=== PATIENT | male | born 2000 | race Caucasian/White ===

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

== ENCOUNTER → 2024-01-15 10:52 | Outpatient (BNVA) | payer OTHER, SELFPAY | PROVIDERS: PCP Family Medicine; Visit Provider Emergency Medicine | DX: M25.571 Pain in right ankle and joints of right foot (principal) | CPT/HCPCS: 73610 ==

== ENCOUNTER 2024-06-27 21:53 | Day surgery (SDC) | payer OTHER, SELFPAY ==
[2024-06-27 22:07] VITALS: BP 143/93; PULSE 84; RESP 18; TEMP 36.6; O2SAT 99; BMI 28.7
--- NOTE | 2024-06-27 23:12 | W.ED.ABDPA2 ---
HPI - Abdominal Pain General: Chief Complaint: Abdominal Pain Stated Complaint: sharp abd pain low right Time Seen by Provider: 06/27/24 22:21 History of Present Illness: 24-year-old man who is otherwise healthy who presents emergency room with right lower quadrant pain. Says he is worried he has appendicitis. Says pain started centrally and now is moved over the right side. He is had nausea but no vomiting. No known fevers. This started earlier today. Related Data Allergies Allergy/AdvReac Type Severity Reaction Status Date / Time No Known Allergies Allergy Verified 01/15/24 10:48 Review of Systems Narrative: Constitutional symptoms: Negative except as documented in HPI. Skin symptoms: Negative except as documented in HPI. Eye symptoms: Negative except as documented in HPI. ENMT symptoms: Negative except as documented in HPI. Respiratory symptoms: Negative except as documented in HPI. Cardiovascular symptoms: Negative except as documented in HPI. Gastrointestinal symptoms: Negative except as documented in HPI. Genitourinary symptoms: Negative except as documented in HPI. Musculoskeletal symptoms: Negative except as documented in HPI. Neurologic symptoms: Negative except as documented in HPI. Psychiatric symptoms: Negative except as documented in HPI. Endocrine symptoms: Negative except as documented in HPI. Physical Exam Narrative: EXAM NARRATIVE: General: Alert, no acute distress. Skin: Warm, dry. Head: Normocephalic, atraumatic. Neck: Supple, trachea midline. Eye: Extraocular movements are intact. Ears, nose, mouth and throat: mucosa moist. Cardiovascular: Regular, Normal peripheral perfusion. Respiratory: Lungs are clear to auscultation, respirations are non-labored, breath sounds are equal, Symmetrical chest wall expansion. Gastrointestinal: Soft, right lower quadrant tenderness palpation, Non distended Musculoskeletal: Normal ROM, no deformity. Neurological: Alert and oriented, No focal neurological deficit observed. Psychiatric: Cooperative, appropriate mood & affect. Course Vital Signs: Vital signs: Vital Signs Temperature 97.9 F 06/27/24 22:07 Pulse Rate 84 06/27/24 22:07 Respiratory Rate 18 06/27/24 22:07 Blood Pressure 143/93 06/27/24 22:07 Pulse Oximetry 99 06/27/24 22:07 Oxygen Delivery Me thod Room Air 06/27/24 22:07 MDM - Abdominal Pain Medical Decision Making Medical decision making: Differential diagnosis for this patient with right lower quadrant abdominal pain including but not limited to and based on the above HPI, review of systems and physical exam: Ureterolithiasis. Urinary tract infection. Appendicitis. colitis. small bowel obstruction. Crohn's flare. Pancreatitis. Cholelithiasis or cholecystitis. Hepatitis. Diverticulitis. Constipation. ovarian cyst. ovarian torsion Workup: Orders were placed to evaluate differential diagnosis based on the above differential, HPI and exam: Lab Review: Laboratory results were reviewed and interpreted by myself the emergency room physician. Significant leukocytosis with a white count of 18,000. No anemia. No renal failure. Urinalysis is clear. CT of the abdomen pelvis with contrast: Acute noncomplicated appendicitis. This was reviewed and interpreted by myself the emergency room physician. I also reviewed the radiology report. I reviewed the patient's medical record Consultation: I spoke with Dr. Qiu who is on-call for general surgery who accepts the patient for admission. Requests IV pain meds, nausea meds, antibiotics and fluids. N.p.o. after midnight. Reexamination: Patient is complaining of some more pain. Him giving him some morphine and Zofran here in the emergency room. Otherwise no distress. He was sleeping fairly comfortably. Still with some right lower quadrant pain. Assessment and plan: Acute appendicitis ?IV Zosyn, Zofran and morphine. -I discussed the patient with the hospitalist on-call who is admitting the patient. - Discussed findings and plan with patient. Answered any questions. - All laboratory values were reviewed and interpreted personally by myself, the ER physician - All imaging was reviewed and interpreted personally by myself, the ER physician. - Evaluation and treatment of this problem were appropriate in the emergency setting Lab Data 06/27/24 23:05 06/27/24 23:05 Labs/Radiology: Radiology Impressions Abdomen/Pelvis CT 06/28/24 00:00 IMPRESSION: Uncomplicated acute appendicitis. Small amount of free fluid in the pelvis. ADDENDUM: 06/28/24 0133 THIS REPORT CONTAINS FINDINGS THAT MAY BE CRITICAL TO PATIENT CARE. The findings were verbally communicated via telephone conference with JJ ALFARO at 1:03 AM TRAVEL ASSISTANT on 06/28/2024. The findings were acknowledged and understood. Laboratory Results WBC 18.23 10^3/uL (3.29-11.43) H 06/27/24 23:05 RBC 5.13 10^6/uL (3.85-5.65) 06/27/24 23:05 Hgb 15.00 g/dL (11.27-16.99) 06/27/24 23:05 Hct 43.6 % (37-53) 06/27/24 23:05 MCV 85.0 fl (82-101) 06/27/24 23:05 MCH 29.2 pg (27-33) 06/27/24 23:05 MCHC 34.4 g/dL (30-55) 06/27/24 23:05 RDW 12.2 % (12.1-15.1) 06/27/24 23:05 Plt Count 262 10^3/cmm (157-399) 06/27/24 23:05 MPV 8.5 fL (7.4-10.4) 06/27/24 23:05 Neut % (Auto) 85.6 % 06/27/24 23:05 Lymph % (Auto) 8.2 % 06/27/24 23:05 [place] % (Auto) 5.3 % 06/27/24 23:05 Eos % (Auto) 0.4 % 06/27/24 23:05 Baso % (Auto) 0.2 % 06/27/24 23:05 Neut # (Auto) 15.61 10^3/uL (1.8-7.7) H 06/27/24 23:05 Lymph # (Auto) 1.5 10^3/uL (0.8-4.8) 06/27/24 23:05 [place] # (Auto) 1.0 10^3/uL (0.2-0.9) H 06/27/24 23:05 Eos # (Auto) 0.1 10^3/uL (0.0-0.8) 06/27/24 23:05 Baso # (Auto) 0.0 10^3/uL (0.0-0.1) 06/27/24 23:05 Nucleated RBC % (auto) 0 % 06/27/24 23:05 Nucleated RBCs # 0.0 /100WBC 06/27/24 23:05 Sodium 140 mmol/L (136-145) 06/27/24 23:05 Potassium 3.7 mmol/L (3.5-5.1) 06/27/24 23:05 Chloride 101 mmol/L (98-107) 06/27/24 23:05 Carbon Dioxide 26 mmol/L (22-29) 06/27/24 23:05 Anion Gap 16.7 (5-19) 06/27/24 23:05 BUN 13 mg/dL (6-20) 06/27/24 23:05 Creatinine 1.0 mg/dL (0.7-1.2) 06/27/24 23:05 GFR Calculation 92.6 mL/min (90-130) 06/27/24 23:05 Glucose 97 mg/dL (65-115) 06/27/24 23:05 Calculated Osmolality 290 mOsm/kg (285-295) 06/27/24 23:05 Calcium 9.4 mg/dL (8.5-10.5) 06/27/24 23:05 Total Bilirubin 0.7 mg/dL (0.15-1.2) 06/27/24 23:05 AST 14 U/L (0-40) 06/27/24 23:05 ALT 16 U/L (0-41) 06/27/24 23:05 Alkaline Phosphatase 79 U/L (40-130) 06/27/24 23:05 C-Reactive Protein 3.7 mg/L (0.0-4.9) 06/27/24 23:05 Total Protein 7.4 g/dL (6.6-8.7) 06/27/24 23:05 Albumin 4.9 g/dL (3.5-5.2) 06/27/24 23:05 Globulin 2.5 g/dL (1.3-4.6) 06/27/24 23:05 Lipase 34 U/L (13-60) 06/27/24 23:05 Urine Color Yellow (Yellow) 06/28/24 00:03 Urine Appearance Clear (CLEAR) 06/28/24 00:03 Urine pH 6.0 (5-7) 06/28/24 00:03 Ur Specific [place] 1.019 (1.005-1.030) 06/28/24 00:03 Urine Protein Negative (Negative) 06/28/24 00:03 Urine Glucose (UA) Negative (Normal) 06/28/24 00:03 Urine Ketones Negative (Negative) 06/28/24 00:03 Urine Blood Negative (Negative) 06/28/24 00:03 Urine Nitrate Negative (Negative) 06/28/24 00:03 Urine Bilirubin Negative (Negative) 06/28/24 00:03 Urine Urobilinogen 0.2 mg/dL (Negative) 06/28/24 00:03 Ur Leukocyte Esterase Negative (Negative) 06/28/24 00:03 Urine RBC 0-2 /hpf (0-2) 06/28/24 00:03 Urine WBC 0-5 /hpf (0-5) 06/28/24 00:03 Ur Squamous Epith Cells 0-5 /hpf (0-5) 06/28/24 00:03 Amorphous Sediment Not Reportable 06/28/24 00:03 Urine Bacteria None seen /hpf (NONE) 06/28/24 00:03 Hyaline Casts 0-4 /lpf H 06/28/24 00:03 All radiology interpretation(s) finalized by discharge Discharge Plan Discharge Patient Disposition: Admitted As Inpatient Admit Provider: Adolfo Qiu Clinical Impression: Acute appendicitis Condition: Stable Coding Level of Care Code ED Blade Sharpener for Yanci Irizarry
[2024-06-27 23:14] LABS: Basophils % 0.2 %; Eosinophils # 0.1 10^3/uL (0.0-0.8); Eosinophils % 0.4 %; Hematocrit 43.6 % (37-53); Lymphocytes # 1.5 10^3/uL (0.8-4.8); Lymphocytes % 8.2 %; Mean Corpuscular HGB Conc 34.4 g/dL (30-55); Mean Corpuscular Hemoglobin 29.2 pg (27-33); Mean Platelet Volume 8.5 fL (7.4-10.4); Monocytes % 5.3 %; Neutrophils # 15.61 10^3/uL (1.8-7.7); Neutrophils % 85.6 %; Nucleated Red Blood Cells % 0 %; Platelet Count 262 10^3/cmm (157-399); Red Blood Count 5.13 10^6/uL (3.85-5.65); Red Cell Distribution Width 12.2 % (12.1-15.1); White Blood Count 18.23 10^3/uL (3.29-11.43)
[2024-06-27 23:15] VITALS: PULSE 87; O2SAT 98
[2024-06-27 23:33] LABS: Alanine Aminotransferase 16 U/L (0-41); Albumin Level 4.9 g/dL (3.5-5.2); Alkaline Phosphatase 79 U/L (40-130); Anion Gap 16.7 (5-19); Aspartate Amino Transferase 14 U/L (0-40); Blood Urea Nitrogen 13 mg/dL (6-20); C Reactive Protein 3.7 mg/L (0.0-4.9); Calcium 9.4 mg/dL (8.5-10.5); Carbon Dioxide 26 mmol/L (22-29); Chloride 101 mmol/L (98-107); Creatinine Clr Calc Pharmacy 130.1417; Globulin 2.5 g/dL (1.3-4.6); Glomerular Filtration Rate 92.6 mL/min (90-130); Glucose 97 mg/dL (65-115); Lipase 34 U/L (13-60); Osmolality Calculated 290 mOsm/kg (285-295); Potassium 3.7 mmol/L (3.5-5.1); Sodium 140 mmol/L (136-145); Total Bilirubin 0.7 mg/dL (0.15-1.2); Total Protein 7.4 g/dL (6.6-8.7)
[2024-06-28] VITALS (32 sets, daily range): BP systolic 105–154; BP diastolic 40–89; PULSE 56–104; RESP 14–18; TEMP 36.2–36.7; O2SAT 95–100
--- NOTE | 2024-06-28 | CTR_ITS ---
PROCEDURE INFORMATION: Exam: CT Abdomen And Pelvis With Contrast Exam date and time: 06/28/2024 12:28 AM Age: 24 years old Clinical indication: Abdominal pain; Flank; Left lower quadrant (llq); Additional info: Rlq abdominal pain TECHNIQUE: Imaging protocol: Computed tomography of the abdomen and pelvis with contrast. Radiation optimization: All CT scans at this facility use at least one of these dose optimization techniques: automated exposure control; mA and/or kV adjustment per patient size (includes targeted exams where dose is matched to clinical indication); or iterative reconstruction. Contrast material: [id number]; Contrast volume: 100 ml; Contrast route: INTRAVENOUS (IV); COMPARISON: No relevant prior studies available. RADIATION DOSE METRICS: Total DLP (mGy-cm): 693.39 FINDINGS: Liver: Normal. No mass. Gallbladder and biliary ducts: Normal. No calcified stones. No ductal dilation. Pancreas: Normal. No ductal dilation. Spleen: Normal. No splenomegaly. Adrenal glands: Normal. No mass. Kidneys and ureters: Normal. No hydronephrosis. Stomach and bowel: No bowel obstruction. Appendix: Inflamed appendix with periappendiceal inflammatory changes. No periappendiceal fluid collection. Intraperitoneal space: There is a trace amount of free fluid in the pelvis. No free air. Vasculature: Unremarkable. No abdominal aortic aneurysm. Lymph nodes: Unremarkable. No enlarged lymph nodes. Urinary bladder: Unremarkable as visualized. Reproductive: Unremarkable as visualized. Bones/joints: Unremarkable. No acute fracture. Soft tissues: Small fat containing umbilical hernia. CT/CT abdomen pelvis w con* [id number] IMPRESSION: Uncomplicated acute appendicitis. Small amount of free fluid in the pelvis.
[2024-06-28] MEDS: iohexol 350 mg/mL 500 mL Btl (per mL) IV (00:31)
[2024-06-28 00:43] LABS: Bacteria Urine None Seen /hpf; Hyaline Casts Urine 0-4 /lpf; RBC Urine 0-2 /hpf (0-2); Squamous Epithelial Cell Urine 0-5 /hpf (0-5); WBC Urine 0-5 /hpf (0-5)
[2024-06-28 00:44] LABS: Add Urine Microscopic? YES; Bilirubin Urine Negative (Negative); Blood Urine Negative (Negative); Glucose Urine UA Negative (Normal); Ketones Urine Negative (Negative); Leukocyte Esterase Urine Negative (Negative); Nitrate Urine Negative (Negative); Protein Urine Negative (Negative); Specific Gravity, Urine 1.019 (1.005-1.030); Urine Appearance Clear (CLEAR); Urine Color Yellow (Yellow); Urobilinogen Urine 0.2 mg/dL (Negative)
[2024-06-28] MEDS: piperacillin-tazobactam 4.5 GM in sodium chloride 0.9% (plus) 50 ML IV (01:44)
[2024-06-28] MEDS: ondansetron 2 mg/ML SDV 2 mL 4 MG IVP (02:21)
[2024-06-28] MEDS: morphine 4 mg/mL SDV 1 mL IVP (02:22)
--- NOTE | 2024-06-28 08:46 | P.HP_ITS ---
Providers/Chief Complaint 2 Admitting Physician: Adolfo Qiu DO Chief Complaint: sharp abd pain low right History of Present Illness Flex Gates is a 24 year old male presents to the hospital with a 1 day history of right lower quadrant abdominal pain. Palpation makes the pain worse. Not makes pain better. The pain does not radiate. Patient denies any nausea, emesis, diarrhea, constipation, hematochezia and/or melena. He does report feeling feverish with chills in the past [address] the abdomen pelvis shows acute appendicitis Review of Systems 2 General: Reports: 10 or more systems reviewed and unremarkable except in HPI and below Medications/Allergies Home Medications Medication Instructions Recorded Confirmed Last Taken Type No Known Home Medications 06/28/24 06/28/24 Unknown History Allergies Allergy/AdvReac Type Severity Reaction Status Date / Time No Known Allergies Allergy Verified 01/15/24 10:48 Vitals/I&O/Wt Last Vital Signs Temp 97.9 F 06/27/24 22:07 Pulse 56 L 06/28/24 08:41 Resp 18 06/28/24 02:22 BP 136/46 06/28/24 08:41 Pulse Ox 97 06/28/24 08:41 O2 Del Method Room Air 06/28/24 07:30 Weight last 48 hrs Weight 200 lb Physical Exam 2 Narrative: General : Patient is well developed , no acute distress, oriented x3 Head : Normal cephalic, a-traumatic. Ears : Pinnae and external canal are normal. Hearing is normal. Eyes : PERRLA, Sclera and injection are normal. No conjunctival discharge. Nose : Mucous membranes are without erythema. Throat : buccal mucosa is normal, gums are without significant recession or hypertrophy. Lungs : Equal chest rise bilaterally, no use of accessory muscles, trachea is midline. Cor : Rate and rhythm are normal. Abdomen : Soft, ND, tender partition right lower quadrant, negative Rovsing's, no g/r/m Extremities : No edema, no cyanosis or clubbing, dorsalis pedis pulses are present bilaterally, non-tender to palpation of calves. Upper extremities are normal bilaterally. Back : non-tender to palpation, no CVA tenderness. Neuro : CN II - XII intact, Upper and lower extremities have equal and full strength Data 06/27/24 23:05 06/27/24 23:05 Micro: Microbiology 06/28/24 01:34 Blood Culture - Preliminary Blood SPECIMEN COLLECTED 06/28/24 01:44 Blood Culture - Preliminary Blood SPECIMEN COLLECTED A&P Assessment and plan (1) Acute appendicitis: Plan Laparoscopic Appendectomy The risks and benefits of the procedure, including but not limited to, bleeding, infection, scar, numbness, pain, damage to surrounding structures, conversion to an open procedure, were explained to the patient. He is understanding of the risks and wishes to proceed. Attestations 2 Medical Necessity Statement*: Patient may need to stay for 1 to 5 days overnight after appendectomy for IV antibiotics depending on if the appendix is perforated Coding Level of Care Code 53499 Diagnoses Acute appendicitis K35.80
--- NOTE | 2024-06-28 08:51 | ANES.PREANE2 ---
Pre-Anesthetic Assessment Height/Weight: Height 5 ft 10 in Weight 200 lb Temp Pulse Resp BP Pulse Ox O2 Del Method 98.1 F 66 18 138/67 99 Room Air 06/28/24 08:44 06/28/24 08:44 06/28/24 08:44 06/28/24 08:44 06/28/24 08:44 06/28/24 08:44 Preop Diagnosis: Acute appendicitis Operation Date: 06/28/24 17:10 Proposed Procedures p Laparoscopic Appendectomy(Not Applicable) - Adolfo Qiu, DO Was Beta Milana taken within 24 hours: N/A Was Clonidine taken within 24 hours: N/A Last intake: Intake Last Liquid Date 06/27/24 Last Liquid Time 17:00 Last Solid Date 06/27/24 Last Solid Time 11:00 Social Tobacco and No alcohol Exam alert, oriented x 3, clear to auscultation bilaterally and regular rate & rhythm Airway Submandibular: within normal limits Cervical ROM: within normal limits Mallampati: Class I Dentition: full Anesthetic Plan ASA status: 2 Anesthesia: General Other: Never had anesthesia before, currently has acute appendicitis NPO since yesterday Labs reviewed, WBC 18.2 Currently vapes nicotine Denies any cardiac issues METs greater than 4 Plan for GETA Medications/Allergies Home Medications Medication Instructions Recorded Confirmed Last Taken Type No Known Home Medications 06/28/24 06/28/24 Unknown History Allergies Allergy/AdvReac Type Severity Reaction Status Date / Time No Known Allergies Allergy Verified 01/15/24 10:48 Data Anesthesia 06/27/24 23:05 06/27/24 23:05 Short CBC 06/27/24 Range/Units 23:05 WBC 18.23 H (3.29-11.43) 10^3/uL Hgb 15.00 (11.27-16.99) g/dL Hct 43.6 (37-53) % MCV 85.0 (82-101) fl Plt Count 262 (157-399) 10^3/cmm Neut % (Auto) 85.6 % Neut # (Auto) 15.61 H (1.8-7.7) 10^3/uL BMP 06/27/24 23:05 Sodium 140 Potassium 3.7 Chloride 101 Carbon Dioxide 26 BUN 13 Creatinine 1.0 Glucose 97 Calcium 9.4 Liver Function 06/27/24 Range/Units 23:05 Total Bilirubin 0.7 (0.15-1.2) mg/dL AST 14 (0-40) U/L ALT 16 (0-41) U/L Alkaline Phosphatase 79 (40-130) U/L Albumin 4.9 (3.5-5.2) g/dL Urine 06/28/24 Range/Units 00:03 Urine Color Yellow (Yellow) Urine Appearance Clear (CLEAR) Urine pH 6.0 (5-7) Ur Specific [place] 1.019 (1.005-1.030) Urine Protein Negative (Negative) Urine Glucose (UA) Negative (Normal) Urine Ketones Negative (Negative) Urine Nitrate Negative (Negative) Urine Bilirubin Negative (Negative) Ur Leukocyte Esterase Negative (Negative) Urine RBC 0-2 (0-2) /hpf Urine WBC 0-5 (0-5) /hpf Coags 06/27/24 23:05 C-Reactive Protein 3.7 Microbiology 06/28/24 01:34 Blood Culture - Preliminary Blood SPECIMEN COLLECTED 06/28/24 01:44 Blood Culture - Preliminary Blood SPECIMEN COLLECTED Cardiac Studies: No Data to Display
[2024-06-28] MEDS: sodium chloride 0.9% 1,000 ML 30 ML IV (09:01)
[2024-06-28] MEDS: piperacillin-tazobactam 3.375 GM in sodium chloride 0.9% (plus) 50 ML IV (09:24)
[2024-06-28] MEDS: lidocaine-epi 2% PF 1:200,000 20 mL SDV 10 ML INJECTION (10:01)
--- NOTE | 2024-06-28 10:15 | P.OP_ITS ---
Operative Report Date of procedure: June 28, 2024 Pre-op diagnosis: Acute appendicitis Post-op diagnosis: same Procedure done: Laparoscopic appendectomy Implants: none Specimens removed/disposition: appendix Surgeon: Adolfo Qiu DO Anesthesia: General and Local Estimated blood loss (mL): 5 Complications: None apparent Brief History: This is a very pleasant 24-year-old gentleman who presented to the hospital with abdominal pain. He was diagnosed with acute appendicitis. Laparoscopic appendectomy is indicated. The risks and benefits of the procedure were explained and documented. Procedure: Patient was wheeled into the operative room and placed on the OR table in a supine position. Abdomen was inspected prepped and draped in usual sterile fashion. Time-out was performed and all present were in agreement. A 15 blade scalp was used to make a stab incision in the left upper quadrant and intra- abdominal insufflation was achieved using a Veress needle. After localizing the tissue incisions were made and a 12 millimeter trocar was placed into the umbilicus as well as a 5mm in the right lower quadrant and a 5 mm in the left lower quadrant . The appendix was identified and was mildly inflamed. I used the laparoscopic ligature to ligate the mesoappendix at the base. I then used 2 PDS endo-loops to snare the base of the appendix. I then used the laparoscopic ligature to ligate the appendix distally. The appendix was removed from the abdomen using an Endo-Catch bag through the umbilical incision. I examined the abdomen and no further pathology was identified. Hemostasis was noted. I then closed the umbilical site with a Henry-Ezeqiuel and 0 Vicryl suture in a figure of 8 fashion. All ports removed. Skin was washed and dried. Incisions were closed with 4 O Vicryl in a subcuticular interrupted fashion. Skin glue was a pplied. Patient tolerated the procedure well.
--- NOTE | 2024-06-28 10:16 | P.DS_ITS ---
Discharge Providers Date of Admission: 06/28/24 01:11 Date of Discharge: June 28, 2024 Attending Provider at Admission: Adolfo Qiu DO Attending Provider at Discharge: Adolfo Qiu DO Diagnoses at Discharge Discharge Diagnosis (1) Acute appendicitis: Status: Acute Reason for Visit Reason for Visit: sharp abd pain low right Hospital Course Hospital Course This very pleasant 24-year-old gentleman presented to the hospital with acute appendicitis. He underwent laparoscopic appendectomy and was discharged home in good condition from the postanesthesia care unit. Physical Exam Narrative: General : Patient is well developed , no acute distress, oriented x3 Head : Normal cephalic, a-traumatic. Ears : Pinnae and external canal are normal. Hearing is normal. Eyes : PERRLA, Sclera and injection are normal. No conjunctival discharge. Nose : Mucous membranes are without erythema. Throat : buccal mucosa is normal, gums are without significant recession or hypertrophy. Lungs : Equal chest rise bilaterally, no use of accessory muscles, trachea is midline. Cor : Rate and rhythm are normal. Abdomen : Soft, ND, appropriately tender, no g/r/m Extremities : No edema, no cyanosis or clubbing, dorsalis pedis pulses are present bilaterally, non-tender to palpation of calves. Upper extremities are normal bilaterally. Back : non-tender to palpation, no CVA tenderness. Neuro : CN II - XII intact, Upper and lower extremities have equal and full strength Discharge Data Studies Completed and Pending Completed Studies During Hospitalization Category Date Time Status CT abdomen pelvis w con* [id number] Stat Cat Scan 06/28/24 00:00 Completed Pending at discharge Category Date Time Status Blood Culture Stat Lab 06/28/24 01:34 Results Pathology: Surgical [PTH] Routine Pth 06/28/24 10:11 Ordered Radiology Impressions Abdomen/Pelvis CT 06/28/24 00:00 IMPRESSION: Uncomplicated acute appendicitis. Small amount of free fluid in the pelvis. ADDENDUM: 06/28/24 0133 THIS REPORT CONTAINS FINDINGS THAT MAY BE CRITICAL TO PATIENT CARE. The findings were verbally communicated via telephone conference with JJ ALFARO at 1:03 AM WEB SERVICES ARCHITECT on 06/28/2024. The findings were acknowledged and understood. Laboratory Results WBC 18.23 10^3/uL (3.29-11.43) H 06/27/24 23:05 RBC 5.13 10^6/uL (3.85-5.65) 06/27/24 23:05 Hgb 15.00 g/dL (11.27-16.99) 06/27/24 23:05 Hct 43.6 % (37-53) 06/27/24 23:05 MCV 85.0 fl (82-101) 06/27/24 23:05 MCH 29.2 pg (27-33) 06/27/24 23:05 MCHC 34.4 g/dL (30-55) 06/27/24 23:05 RDW 12.2 % (12.1-15.1) 06/27/24 23:05 Plt Count 262 10^3/cmm (157-399) 06/27/24 23:05 MPV 8.5 fL (7.4-10.4) 06/27/24 23:05 Neut % (Auto) 85.6 % 06/27/24 23:05 Lymph % (Auto) 8.2 % 06/27/24 23:05 [place] % (Auto) 5.3 % 06/27/24 23:05 Eos % (Auto) 0.4 % 06/27/24 23:05 Baso % (Auto) 0.2 % 06/27/24 23:05 Neut # (Auto) 15.61 10^3/uL (1.8-7.7) H 06/27/24 23:05 Lymph # (Auto) 1.5 10^3/uL (0.8-4.8) 06/27/24 23:05 [place] # (Auto) 1.0 10^3/uL (0.2-0.9) H 06/27/24 23:05 Eos # (Auto) 0.1 10^3/uL (0.0-0.8) 06/27/24 23:05 Baso # (Auto) 0.0 10^3/uL (0.0-0.1) 06/27/24 23:05 Nucleated RBC % (auto) 0 % 06/27/24 23:05 Nucleated RBCs # 0.0 /100WBC 06/27/24 23:05 Sodium 140 mmol/L (136-145) 06/27/24 23:05 Potassium 3.7 mmol/L (3.5-5.1) 06/27/24 23:05 Chloride 101 mmol/L (98-107) 06/27/24 23:05 Carbon Dioxide 26 mmol/L (22-29) 06/27/24 23:05 Anion Gap 16.7 (5-19) 06/27/24 23:05 BUN 13 mg/dL (6-20) 06/27/24 23:05 Creatinine 1.0 mg/dL (0.7-1.2) 06/27/24 23:05 GFR Calculation 92.6 mL/min (90-130) 06/27/24 23:05 Glucose 97 mg/dL (65-115) 06/27/24 23:05 Calculated Osmolality 290 mOsm/kg (285-295) 06/27/24 23:05 Calcium 9.4 mg/dL (8.5-10.5) 06/27/24 23:05 Total Bilirubin 0.7 mg/dL (0.15-1.2) 06/27/24 23:05 AST 14 U/L (0-40) 06/27/24 23:05 ALT 16 U/L (0-41) 06/27/24 23:05 Alkaline Phosphatase 79 U/L (40-130) 06/27/24 23:05 C-Reactive Protein 3.7 mg/L (0.0-4.9) 06/27/24 23:05 Total Protein 7.4 g/dL (6.6-8.7) 06/27/24 23:05 Albumin 4.9 g/dL (3.5-5.2) 06/27/24 23:05 Globulin 2.5 g/dL (1.3-4.6) 06/27/24 23:05 Lipase 34 U/L (13-60) 06/27/24 23:05 Urine Color Yellow (Yellow) 06/28/24 00:03 Urine Appearance Clear (CLEAR) 06/28/24 00:03 Urine pH 6.0 (5-7) 06/28/24 00:03 Ur Specific [place] 1.019 (1.005-1.030) 06/28/24 00:03 Urine Protein Negative (Negative) 06/28/24 00:03 Urine Glucose (UA) Negative (Normal) 06/28/24 00:03 Urine Ketones Negative (Negative) 06/28/24 00:03 Urine Blood Negative (Negative) 06/28/24 00:03 Urine Nitrate Negative (Negative) 06/28/24 00:03 Urine Bilirubin Negative (Negative) 06/28/24 00:03 Urine Urobilinogen 0.2 mg/dL (Negative) 06/28/24 00:03 Ur Leukocyte Esterase Negative (Negative) 06/28/24 00:03 Urine RBC 0-2 /hpf (0-2) 06/28/24 00:03 Urine WBC 0-5 /hpf (0-5) 06/28/24 00:03 Ur Squamous Epith Cells 0-5 /hpf (0-5) 06/28/24 00:03 Amorphous Sediment Not Reportable 06/28/24 00:03 Urine Bacteria None seen /hpf (NONE) 06/28/24 00:03 Hyaline Casts 0-4 /lpf H 06/28/24 00:03 Procedures Performed Laparoscopic appendectomy Vitals Last Vital Signs Temp 98.1 F 06/28/24 08:44 Pulse 66 06/28/24 08:44 Resp 18 06/28/24 08:44 BP 138/67 06/28/24 08:44 Pulse Ox 99 06/28/24 08:44 O2 Del Method Room Air 06/28/24 08:44 Discharge Plan Discharge Patient Disposition: Home Condition: Stable Prescriptions: New hydrocodone-acetaminophen 7.5-325 mg tablet 1 tab PO Q6H PRN (Reason: pain) Qty: 20 0RF docusate sodium [Colace] 100 mg capsule 100 mg PO BID Qty: 14 0RF polyethylene glycol 3350 [Miralax] 17 gram/dose powder 17 g PO DAILY Qty: 119 0RF amoxicillin-pot clavulanate 875-125 mg tablet 1 tab PO BID Qty: 14 0RF Discharge Orders: Discharge Order (Routine); Ordered 06/28/24 Ordered By: Adolfo Qiu Referrals: Adolfo Qiu DO [Physician] - 2 weeks Discharge Diet: Advance as tolerated Discharge Activity: Resume usual activity Patient Instructions: Acute Wound Care (DC), Opioid Safety, Post Anesthesia Care Activity Restrictions/Additional Instructions: Do not soak incisions underwater for 2 weeks. Shower regularly Discharge Attestations Time Spent in Discharge Care*: less than 30 min Quality Metrics Clinical Quality Measures [ No reported AMI, CVA or VTE this stay] Coding Level of Care Code Acute Code for Chg Fwd Diagnoses Acute appendicitis K35.80
[2024-06-28] MEDS: fentaNYL 50 mcg/mL INJ 2mL IVP (10:56)
[2024-06-28] MEDS: HYDROcodone-acetaminophen 7.5-325 mg Tablet 1 TAB PO (11:36)
== END 2024-06-28 12:33 | disposition home or self-care (01) ==
LOC: ER 23:12 → ER IP 06-28 01:58 → OPS 06-28 10:35
PROVIDERS: Physician Assistant; Emergency Provider Emergency Medicine; Visit Provider Surgery
PROC: 0DTJ4ZZ Resection of Appendix, Percutaneous Endoscopic Approach (ICD-10-PCS; CPT 44970; principal; 2024-06-28 17:00)
DX: K35.80 Unspecified acute appendicitis (principal); F17.200 Nicotine dependence, unspecified, uncomplicated
CPT/HCPCS: 36415; 74177; 80053; 81001; 83690; 85025; 86140; 87040; 88304; J1100; J2250; J2270; J2405; J2543; J2704; J2710; J3010; J3490; J7030